=== PATIENT | female | born 1935 ===

== ENCOUNTER 2017-01-19 17:55 | Observation (INO) | payer MEDICARE, MEDICAID ==
[2017-01-19] MEDS ORDERED: Sodium Chloride 0.9% 1,000 ML IV STA ×3 (18:57→23:38)
[2017-01-19 19:27] LABS: BASO # 0.1 K/uL (0.0-0.2); BASO % 0.6 % (0.0-2.0); EOS % 0.3 % (0.0-4.0); HEMATOCRIT 37.6 % (34.0-47.0); LYMPH # 2.5 K/uL (1.0-4.3); LYMPH % 17.3 % (20.0-40.0); MEAN CELL VOLUME 77.4 fl (81.0-99.0); MEAN CORPUSCULAR HEMOGLOBIN 24.2 pg (27.0-31.0); MEAN CORPUSCULAR HGB CONC 31.3 g/dL (33.0-37.0); MEAN PLATELET VOLUME 8.7 fl (7.2-11.7); MONO # 0.6 K/uL (0.0-0.8); MONO % 3.9 % (0.0-10.0); NEUT # 11.1 K/uL (1.8-7.0); NEUT % 77.9 % (50.0-75.0); NRBC % 0.1 % (0.0-0.0); RED CELL DISTRIBUTION WIDTH 13.4 % (11.5-14.5); WHITE BLOOD COUNT 14.2 K/uL (4.8-10.8)
--- NOTE | 2017-01-19 19:42 | ED PDOC ---
HPI: General Adult Time Seen by Provider: 01/19/17 18:25 Chief Complaint (Nursing): Flu-like Symptoms Chief Complaint (Provider): Flu-like Symptoms History Per: Patient History/Exam Limitations: no limitations Onset/Duration Of Symptoms: Days (x3-4), Intermittent Episodes Have you had recent travel within the past 21 days to any of the following countries: [place], [place], [place] or [place]?: No Current Symptoms Are (Timing): Still Present Severity: Moderate Additional Complaint(s): Maame Starkey is an 81 year old female, with a past medical history of HTN and type II diabetes, who presents to the emergency department with complaints of moderately severe flu-like symptoms inclusive of an intermittent fever, chills, myalgia, and an occasional productive cough. Associated suprapubic abdominal pain, non-bloody vomiting and dysuria is also reported. The patient denies chest pain and shortness of breath. PMD: Sayed Past Medical History Reviewed: Historical Data, Nursing Documentation, Vital Signs Vital Signs: Last Vital Signs Temp 99.6 F 01/19/17 21:24 Pulse 80 01/19/17 21:24 Resp 16 01/19/17 21:24 BP 189/88 H 01/19/17 21:24 Pulse Ox 98 01/19/17 21:24 - Medical History PMH: Diabetes (type II), HTN - Family History Family History: States: Unknown Family Hx - Social History Current smoker - smoking cessation education provided: No Ex-Smoker (has not smoked in the last 12 months): No Alcohol: None Drugs: Denies - Home Medications Home Medications: Ambulatory Orders Medication Instructions Recorded Amlodipine/Valsartan [Amlodipine 1 tab PO DAILY 01/19/17 Besylate-Valsartan 5 mg-160 mg] Brimonidine 0.15% [Alphagan P 5 Ml] 1 drop OP DAILY 01/19/17 Cholecalciferol (Vitamin D3) 50,000 unit PO QWK 01/19/17 [Vitamin D3] Clotrimazole/Betamethasone 30 ml TOP DAILY 01/19/17 [Lotrisone] Cyclobenzaprine [Cyclobenzaprine 10 mg PO DAILY 01/19/17 HCl] Fluticasone Nasal [Flonase] 50 mcg NS DAILY 01/19/17 Gabapentin [Neurontin] 100 mg PO TID 01/19/17 Insulin Glargine,Hum.rec.anlog 20 unit SQ HS 01/19/17 [Toujeo Solostar] Levothyroxine [Synthroid] 88 mcg PO DAILY 01/19/17 Linaclotide [Linzess] 145 mcg PO DAILY 01/19/17 Mometasone/Formoterol [Dulera 200 1 puff IH BID 01/19/17 Mcg/5 Mcg Inhaler] Nebivolol [Bystolic] 10 mg PO DAILY 01/19/17 Omeprazole 20 mg PO DAILY 01/19/17 Rosuvastatin Calcium [Crestor] 10 mg PO DAILY 01/19/17 Sitagliptin Phos/Metformin HCl 1 each PO BID 01/19/17 [Janumet 50-1,000 mg Tablet] Tiotropium Br/Olodaterol HCl 2.5 gm IH HS 01/19/17 [Stiolto Respimat Inhal [place]] - Allergies Allergies/Adverse Reactions: Allergies Allergy/AdvReac Type Severity Reaction Status Date / Time No Known Allergies Allergy Verified 01/19/17 17:56 Review of Systems ROS Statement: Except As Marked, All Systems Reviewed And Found Negative Constitutional: Positive for: Fever, Chills, Other (myalgia) Cardiovascular: Negative for: Chest Pain Respiratory: Positive for: Cough (occasional, productive). Negative for: Shortness of Breath Gastrointestinal: Positive for: Vomiting (non-bloody), Abdominal Pain ( suprapubic) Genitourinary Female: Positive for: Dysuria Physical Exam - Reviewed Nursing Documentation Reviewed: Yes Vital Signs Reviewed: Yes - Physical Exam Appears: Positive for: Non-toxic, No Acute Distress Head Exam: Positive for: ATRAUMATIC, NORMOCEPHALIC Skin: Positive for: Normal Color, Warm, Dry Eye Exam: Positive for: Normal appearance, PERRL ENT: Positive for: Normal ENT Inspection Neck: Positive for: Normal, Supple Cardiovascular/Chest: Positive for: Regular Rate, Rhythm. Negative for: Edema, Murmur Respiratory: Positive for: Rhonchi (scattered b/l). Negative for: Wheezing, Respiratory Distress Gastrointestinal/Abdominal: Positive for: Soft, Tenderness (mild suprapubic) Back: Positive for: Normal Inspection. Negative for: L CVA Tenderness, R CVA Tenderness Extremity: Positive for: Normal ROM. Negative for: Swelling Neurologic/Psych: Positive for: Alert, Oriented - Laboratory Results Result Diagrams: 01/19/17 18:58 01/19/17 19:30 - ECG O2 Sat by Pulse Oximetry: 99 Pulse Ox Interpretation: Normal Medical Decision Making Medical Decision Makin:25 Initial Impression: Flu-like symptoms inclusive of fever, productive cough, myalgia Initial Plan: * EKG * CXR * CBC * CMP * VBG Shock Panel * Udip * Sodium Chloride 1,000ml IV at 100mls/hrs * Influenza A/B * Blood Culture * Urine Culture Scribe Attestation: Documented by Korey Aguirre training under Parris Mathew, acting as a scribe for Agustín Andres MD. Provider Scribe Attestation: All medical record entries made by the Scribe were at my direction and personally dictated by me. I have reviewed the chart and agree that the record accurately reflects my personal performance of the history, physical exam, medical decision making, and the department course for this patient. I have also personally directed, reviewed, and agree with the discharge instructions and disposition. Disposition - Clinical Impression Clinical Impression: Systemic inflammatory response syndrome (SIRS) - Patient ED Disposition Is Patient to be Admitted: Yes - Disposition Disposition Time: 23:14 Condition: FAIR - Pt Status Changed To: Hospital Disposition Of: Observation - POA Present On Arrival: None
[2017-01-19 19:43] LABS: ALB/GLOB RATIO 1.2 (1.0-2.1); ALKALINE PHOSPHATASE 59 U/L (38-126); ALT/SGPT 49 U/L (9-52); AST/SGOT 59 U/L (14-36); BILIRUBIN,TOTAL 0.7 mg/dl (0.2-1.3); BLOOD UREA NITROGEN 13 mg/dl (7-17); CARBON DIOXIDE 22 mmol/L (22-30); CHLORIDE 94 mmol/L (98-107); GFR AFRICAN-AMERICAN > 60; GLUCOSE,RANDOM 145 mg/dL (65-105); POTASSIUM 4.3 MMOL/L (3.6-5.0); SODIUM 133 mmol/l (132-148); TOTAL PROTEIN 8.4 G/DL (6.3-8.2)
[2017-01-19 20:15] LABS: VENOUS BLOOD GAS BASE EXCESS 3.8 mmol/L (0.0-2.0); VENOUS BLOOD GAS PCO2 46 mmHg (40-60); VENOUS BLOOD PH 7.41 (7.32-7.43)
[2017-01-19 22:51] LABS: VENOUS BLOOD GAS BASE EXCESS 3.4 mmol/L (0.0-2.0); VENOUS BLOOD GAS PCO2 44 mmHg (40-60); VENOUS BLOOD PH 7.42 (7.32-7.43)
[2017-01-20] MEDS ORDERED: Ergocalciferol 50,000 Intl Units Cap PO SCH (06:45)
[2017-01-20] MEDS ORDERED: Levothyroxine 88 MCG TAB PO SCH (07:00)
--- NOTE | 2017-01-20 07:11 | CARD ---
APPROVED REPORT EKG Measurement Heart [id number] <Conclusion> Normal sinus rhythm Septal infarct, age undetermined Abnormal ECG
[2017-01-20] MEDS ORDERED: Insulin Regular 100 units/ml ONE ×2 (07:33→12:36)
[2017-01-20] MEDS: Insulin Regular 100 units/ml SC SCH ×2 (07:45→12:44)
--- NOTE | 2017-01-20 08:22 | RAD ---
HISTORY: cough COMPARISON: Comparison is made to the previous study dated 12/19/2008 TECHNIQUE: Chest PA and lateral FINDINGS: LUNGS: No evidence of new focal infiltrate or consolidation in the lungs. Prominent lung markings again noted. PLEURA: No significant pleural effusion identified. No pneumothorax apparent. CARDIOVASCULAR: The cardiac silhouette is mildly enlarged. OSSEOUS STRUCTURES: No significant abnormalities. VISUALIZED UPPER ABDOMEN: Normal. OTHER FINDINGS: None. IMPRESSION: No radiographic evidence of pneumonia. Mild cardiomegaly P
[2017-01-20] MEDS ORDERED: Patient's Own Med (Brimonidine 0.15% [Alphagan P 0.15% Opht] 1 DROP) OP SCH (09:00)
[2017-01-20] MEDS ORDERED: Pantoprazole 40 mg EC Tab PO SCH (09:00)
[2017-01-20] MEDS ORDERED: Patient's Own Med (Rosuvastatin Calcium [Crestor] 10 MG) PO SCH (09:00)
[2017-01-20] MEDS ORDERED: Patient's Own Med (Nebivolol [Bystolic] 10 MG) PO SCH (09:00)
[2017-01-20] MEDS ORDERED: VALSARTAN PO SCH (09:00)
[2017-01-20] MEDS ORDERED: AMLODIPINE PO SCH (09:00)
[2017-01-20] MEDS ORDERED: Patient's Own Med (Sitagliptin Phos/Metformin Hcl [Janumet 50-1,000 Mg Tablet] 1 EACH) PO SCH (09:00)
[2017-01-20 15:19] LABS: BASO # 0.1 K/uL (0.0-0.2); BASO % 0.6 % (0.0-2.0); EOS # 0.2 K/uL (0.0-0.7); EOS % 2.3 % (0.0-4.0); HEMATOCRIT 34.3 % (34.0-47.0); LYMPH # 3.1 K/uL (1.0-4.3); LYMPH % 31.2 % (20.0-40.0); MEAN CELL VOLUME 77.4 fl (81.0-99.0); MEAN CORPUSCULAR HEMOGLOBIN 24.6 pg (27.0-31.0); MEAN CORPUSCULAR HGB CONC 31.7 g/dL (33.0-37.0); MEAN PLATELET VOLUME 8.5 fl (7.2-11.7); MONO # 0.8 K/uL (0.0-0.8); MONO % 8.1 % (0.0-10.0); NEUT # 5.8 K/uL (1.8-7.0); NEUT % 57.8 % (50.0-75.0); RED CELL DISTRIBUTION WIDTH 13.2 % (11.5-14.5); WHITE BLOOD COUNT 10.1 K/uL (4.8-10.8)
[2017-01-20 17:34] VITALS: BP 136/76; PULSE 72; RESP 18; TEMP 99.2; O2SAT 97
--- NOTE | 2017-01-20 20:04 | HP ---
HISTORY OF PRESENT ILLNESS: This is an 81-year-old female with history of multiple medical problems, presented to Emergency Room with symptoms of low-grade fevers, chills and generalized body aches and congestion. The patient was evaluated in the Emergency Room where she was found to have so me leukocytosis, but influenza virus was negative as well as chest x-ray. The patient was found to b e also slightly dehydrated. The patient was started on IV fluid and admitted for further management. REVIEW OF SYSTEMS: Other review of systems is negative. ALLERGIES: No known allergy. PAST MEDICAL HISTORY: Hypertension, type 2 diabetes mellitus, hypercholesterolemia, chronic obstruct angeline pulmonary disease. MEDICATIONS: Diovan 160 mg daily, metformin 1000 mg twice a day, Januvia 100 mg daily, Lipitor 20 mg daily, Lopressor 50 mg twice a day, gabapentin 100 mg 3 times a day, Protonix 40 mg daily, Synthroid 88 mcg daily. SOCIAL HISTORY: No history of smoking, EtOH or substance abuse. FAMILY HISTORY: Noncontributory. PHYSICAL EXAMINATION: GENERAL: The patient is in bed, comfortable at the time of this examination. VITAL SIGNS: Blood pressure 149/59, temperature 97.7, respiratory rate 15 and pulse 73. HEENT: Pupils equal, reactive to light. Normal-appearing mucosa of the conjunctivae, oropharyngeal and nasal membrane mucosa. NECK: Supple, no JVD, no carotid bruit, no lymph node, no thyromegaly. CHEST AND LUNGS: Bilateral symmetrical expansion, good air exchange, no rales, no rhonchi. CARDIOVASCULAR: PMI not localized. S1, S2. No additional sounds. ABDOMEN: Normoactive bowel sounds, no tenderness, no organomegaly, no masses. EXTREMITIES: No cyanosis, no clubbing, no edema. CENTRAL NERVOUS SYSTEM: Alert, awake, oriented x 2. No neurological deficits could be appreciated. ASSESSMENT: 1. Likely viral syndrome with mild dehydration. 2. Hypertension. 3. Hypothyroidism. 4. Type 2 diabetes mellitus. PLAN: Continue IV fluid, repeat CBC and resume the patient's home medications. [facility] Walter Alberto MD cc: [id number] TT: 01/20/2017 20:03:26 [place]n
[2017-01-20] MEDS ORDERED: INSULIN GLARGINE HUM REC ANLOG 20 UNIT SQ SCH (22:00)
[2017-01-20] MEDS ORDERED: TIOTROPIUM BR IH SCH (22:00)
[2017-01-20] MEDS ORDERED: OLODATEROL HCL IH SCH (22:00)
== END 2017-01-20 18:15 | disposition home or self-care (01) ==
LOC: H.ER 17:55 → H.ERHOLD 23:12
PROVIDERS: ADMIT Internal Medicine; ATTEND Internal Medicine
DX: B34.9 Viral infection, unspecified (principal); E86.0 Dehydration; I10 Essential (primary) hypertension; E11.9 Type 2 diabetes mellitus without complications; E78.00 Pure hypercholesterolemia, unspecified; J44.9 Chronic obstructive pulmonary disease, unspecified; E03.9 Hypothyroidism, unspecified; M79.1 Myalgia; D72.829 Elevated white blood cell count, unspecified
CPT/HCPCS: 71020; 80053; 82803; 82948; 85025; 87040; 87086; 87181; 87804; 93005; 96372; 99285; G0378; J7040